=== PATIENT | female | born 1975 | race Caucasian/White ===

== ENCOUNTER 2016-03-08 11:09 | Emergency (ER) | payer BC ==
[2016-03-08 12:59] VITALS: BP 131/79
--- NOTE | 2016-03-08 13:38 | UC ---
Dental HPI - HPI Summary HPI Summary: Seen in about 4 weeks ago for white spots and soreness on bottom of tongue. Dx with thrush and put on nystatin oral susp. It went away after a few days until yesterday, when tongue started to feel a little sore. Today sees white patches again and tongue feels "scalded." also some white spots on inside of lower lip. Denies recent abx or steroids. No dx as diabetic. - History of Current Complaint Chief Complaint: UCGeneralIllness Stated Complaint: WHITE FILM IN MOUTH Time Seen by Provider: 03/08/16 12:53 Hx Obtained From: Patient Hx Last Menstrual Period: 12 days ago Onset/Duration: Gradual Onset, Lasting Hours Severity: Mild Aggravating: Nothing Alleviating: Nothing - Allergies/Home Medications Allergies/Adverse Reactions: Allergies Allergy/AdvReac Type Severity Reaction Status Date / Time Bupropion [From Wellbutrin] Allergy Rash Verified 02/10/16 07:21 Penicillins Allergy Giant Hives Verified 02/10/16 07:21 Onion AdvReac Intermediate Diarrhea Verified 02/10/16 07:21 CIGARETTES Allergy Severe DYSNPEA Uncoded 02/10/16 07:21 DOGS Allergy Severe Itching Uncoded 02/10/16 07:21 Home Medications: Home Medications Albuterol HFA INHALER* [Ventolin HFA Inhaler*] 03/08/16 [History] Montelukast Sodium TAB* [Singulair 10 MG TAB*] 1 tab PO 03/08/16 [History] PMH/Surg Hx/FS Hx/Imm Hx Endocrine History Of: Denies: Diabetes Cardiovascular History Of: Denies: Hypertension, Pacemaker/ICD Respiratory History Of: Reports: Asthma - PRN INHALER Psychological History Of: Reports: Anxiety - R/T UPCOMING SURGERY - Surgical History Surgical History: Yes Surgery Procedure, Year, and Place: Hysterrectomy; TEAR DUCT ENLARGED AN , NO ANESTHESIA. WISDOM TEETH EXTRACTION, OFFICE - Family History Known Family History: Positive: Diabetes - Type II - father Family History: no pmh of blood/bleeding disorders in family, - Social History Occupation: Employed Full-time Lives: With Family Alcohol Use: Occasionally Alcohol Amount: 3-5 week Substance Use Type: None Smoking Status (MU): Never Smoked Tobacco - Immunization History Most Recent Influenza Vaccination: 2013 Most Recent Tetanus Shot: 9 1/2 years ago Most Recent Pneumonia Vaccination: NONE Review of Systems Constitutional: Negative Skin: Negative Eyes: Negative ENT: Other - tongue sore and white areas Respiratory: Negative Cardiovascular: Negative Gastrointestinal: Negative Genitourinary: Negative Motor: Negative Neurovascular: Negative Musculoskeletal: Negative Neurological: Negative Psychological: Negative All Other Systems Reviewed And Are Negative: Yes Physical Exam Triage Information Reviewed: Yes Appearance: Well-Appearing, No Pain Distress, Well-Nourished Vital Signs: Initial Vital Signs Temp 98.9 F 03/08/16 12:54 Pulse 65 03/08/16 12:54 Resp 18 03/08/16 12:54 BP 131/79 03/08/16 12:54 Pulse Ox 100 03/08/16 12:54 Vital Signs Reviewed: Yes Eye Exam: Normal Eyes: Positive: Conjunctiva Clear ENT: Positive: Hearing grossly normal, TMs normal, Other: - irreg white patches on underside of tongue and inside of lower lip. No erythema.. Negative: Pharyngeal erythema, Nasal congestion, Tonsillar swelling, Tonsillar exudate Dental Exam: Normal Dental: Negative: Percussion Tenderness @, Gross Decay/Caries @, Dental Fracture @ Neck exam: Normal Neck: Positive: Supple, Nontender, No Lymphadenopathy Respiratory Exam: Normal Respiratory: Positive: Chest non-tender, Lungs clear, Normal breath sounds, No respiratory distress, No accessory muscle use Cardiovascular Exam: Normal Cardiovascular: Positive: RRR, No Murmur Musculoskeletal Exam: Normal Neurological Exam: Normal Psychological Exam: Normal Skin Exam: Normal Dental Complaint Course/Dx - Differential Dx/Diagnosis Provider Diagnoses: oral candidiasis Discharge - Discharge Plan Condition: Stable Disposition: HOME Prescriptions: Clotrimazole YAA* [Mycelex Yaa*] 10 mg MT SEE INSTRUCTIONS #50 yaa Patient Education Materials: Oral Candidiasis (ED) Referrals: Jennifer Chen MD [Primary Care Provider] - Additional Instructions: As we discussed, you do not have any risk factors for thrush, and your exam is not particularly suggestive for thrush, so we will treat it as thrush for now while you await your primary care follow-up visit.
== END 2016-03-08 13:47 | disposition home or self-care (01) ==
LOC: UCEAST 11:09
DX: B37.0 Candidal stomatitis (principal); Z88.8 Allergy status to other drugs, medicaments and biological substances
CPT/HCPCS: 87102; 99212; G0463

== ENCOUNTER 2018-10-05 14:42 | Emergency (ER) | payer BC ==
[2018-10-05 15:37] VITALS: BP 148/78
--- NOTE | 2018-10-05 15:44 | UC ---
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 Sx worse in the evening. No point pain perse. No wol h/a. No palpitations, cp. No sob, but does have asthma has used inhaler. No current GI sx, but did have some diarrhea at onset of sx. Currently ok. No melena / brbpr. No issues, s/p hyst apprx 3 yrs ago. No rash. Had lyme dz (pt report) x 2 in the past. Reports that doxycycline, while hard on GI, did help. - History of Current Complaint Chief Complaint: UCGeneralIllness Stated Complaint: FEVER/BODY ACHES/FATIGUE Time Seen by Provider: 10/05/18 15:37 Hx Obtained From: Patient Hx Last Menstrual Period: hysterectomy Pain Intensity: 3 - Allergy/Home Medications Allergies/Adverse Reactions: Allergies Allergy/AdvReac Type Severity Reaction Status Date / Time MS Bupropion Allergy Rash Verified 10/05/18 15:37 [From Wellbutrin] MS Penicillins [Penicillins] Allergy Giant Hives Verified 10/05/18 15:37 MS Onion [Onion] AdvReac Intermediate Diarrhea Verified 10/05/18 15:37 CIGARETTES Allergy Severe DYSNPEA Uncoded 10/05/18 15:37 DOGS Allergy Severe Itching Uncoded 10/05/18 15:37 Home Medications: Home Medications Cholecalciferol (Vitamin D3) [Vitamin D3] 1,000 unit PO DAILY 10/05/18 [History Confirmed 10/05/18] PMH/Surg Hx/FS Hx/Imm Hx Previously Healthy: Yes - see hpi - Surgical History Surgical History: Yes Surgery Procedure, Year, and Place: Hysterrectomy; TEAR DUCT ENLARGED AN INFANT, NO ANESTHESIA. WISDOM TEETH EXTRACTION, OFFICE - Family History Known Family History: Positive: Diabetes - Type II - father Family History: no pmh of blood/bleeding disorders in family, - Social History Alcohol Use: Occasionally Alcohol Amount: 3-5 week Substance Use Type: None Smoking Status (MU): Never Smoked Tobacco - Immunization History Most Recent Influenza Vaccination: 2013 Most Recent Tetanus Shot: 9 1/2 years ago Most Recent Pneumonia Vaccination: NONE Review of Systems All Other Systems Reviewed And Are Negative: Yes Constitutional: Positive: Other - see hpi Skin: Positive: Other - see hpi Eyes: Positive: Negative ENT: Positive: Other - allergies Respiratory: Positive: Other Cardiovascular: Positive: Other - see hpi Gastrointestinal: Positive: Other - see hpi Genitourinary: Positive: Other - see hpi Motor: Positive: Other - see hpi Neurovascular: Positive: Other - see hpi Musculoskeletal: Positive: Other: - see hpi Neurological: Positive: Other - see hpi Psychological: Positive: Negative Is Patient Immunocompromised?: No Physical Exam Triage Information Reviewed: Yes Appearance: Well-Nourished - sitting up, looks a little tired but nad Vital Signs: Initial Vital Signs Temp 98.2 F 10/05/18 15:32 Pulse 70 10/05/18 15:32 Resp 16 10/05/18 15:32 BP 148/78 10/05/18 15:32 Pulse Ox 100 10/05/18 15:32 Vital Signs Reviewed: Yes Eye Exam: Normal ENT: Positive: Pharynx normal, TM dull - dull au, d/w pt Neck exam: Normal Neck: Positive: Supple, Nontender, No Lymphadenopathy Respiratory Exam: Normal Respiratory: Positive: Chest non-tender, Lungs clear, Normal breath sounds, No respiratory distress, No accessory muscle use Cardiovascular Exam: Normal Cardiovascular: Positive: RRR, Pulses Normal, Brisk Capillary Refill Abdominal Exam: Normal Abdomen Description: Positive: Nontender Musculoskeletal: Positive: Strength Intact - gait steady, moves x 4 ext's Neurological Exam: Normal - grossly nonfocal Psychological Exam: Normal - conversing easily and appropriately Skin Exam: Normal - nondiaphoretic. no visible or reported rash. Course/Dx - Course Course Of Treatment: Reviewed coa / tx plan. [She is interested in rx for doxycycline. s/sx could be related to lyme - or tick borne illness - however, not completely specific. I suggest to hold off however, if possible until testing results back, and speaks with pcp. She is not sure when she will see pcp, will call for appt. Aware of doxycycline care. Ms. Shell was given the opportunity to ask several insightful questions, to which I answered to the best of my ability. - Diagnoses Provider Diagnosis: Fever, Myalgia Discharge - Sign-Out/Discharge Documenting (check all that apply): Patient Departure All imaging exams completed and their final reports reviewed: No Studies - Discharge Plan Condition: Stable Disposition: HOME Prescriptions: DOXYcycline CAP(*) [DOXYcycline 100MG CAP(*)] 100 mg PO BID #56 cap Patient Education Materials: Fever in Adults (ED), Musculoskeletal Pain (ED) Forms: *Work Release Referrals: Jennifer Chen MD [Primary Care Provider] - Additional Instructions: Call Dr. Chen - schedule a follow up for tomorrow (Tuesday) or early next week , if possible. Seek medical attention for worse or new symptoms. Hydrate. Avoid prolonged exposure to the sun while taking doxycycline. Check with your pharmacist about which medications to modify when taking doxycycline. Probiotic. Blood work and urine culture sent. - Billing Disposition and Condition Condition: STABLE Disposition: Home
[2018-10-05 19:01] LABS: ABS Basophils 0.1 10^3/ul (0-0.2); ABS Eosinophils 0.2 10^3/ul (0-0.6); ABS Lymphocytes 2.2 10^3/ul (1.0-4.8); ABS Monocytes 0.7 10^3/ul (0-0.8); ABS Neutrophils 9.4 10^3/ul (1.5-7.7); ABS Nucleated RBC 0.1 10^3/ul; Eosinophil % 1.6 %; Hematocrit 48 % (35-47); Lymphocyte % 17.5 %; Mean Corpuscular HGB Conc 34 g/dL (31-36); Mean Corpuscular Hemoglobin 29 pg (27-31); Mean Corpuscular Volume 87 fL (80-97); Mean Platelet Volume 9.7 fL (7.4-10.4); Nucleated Red Blood Cells % 0.4; Platelet Count 272 10^3/uL (150-450); Red Blood Count 5.45 10^6 /uL (3.70-4.87); Red Cell Distribution Width 13 % (10-15); White Blood Count 12.6 10^3/uL (3.5-10.8)
[2018-10-05 19:19] LABS: Albumin 4.7 g/dL (3.2-5.2); Albumin/Globulin Ratio 1.6 (1-3); BUN/Creatinine Ratio 18.1 (8-20); C Reactive Protein 3.07 mg/L (<8.01); EGFR African American 90.4 (>60); EGFR Non-African American 74.7 (>60); Globulin 2.9 g/dL (2-4); Potassium 4.4 mmol/L (3.5-5.0); Total Bilirubin 0.6 mg/dL (0.2-1.0); Total Protein 7.6 g/dL (6.4-8.9)
[2018-10-05 19:28] LABS: TSH (Thyroid Stimulating Horm) 1.22 mcIU/mL (0.34-5.60)
[2018-10-05 20:39] LABS: Erythrocyte Sed Rate 17 mm/Hr (0-19)
--- NOTE | 2018-10-06 13:16 | UC ---
- Progress Note Progress Note: Lyme dx titer pending, elevate WBC, nurse to call patient to ensure she has follow up with her physician/ no worsening. -Bertha Mina PAC Course/Dx - Diagnoses Provider Diagnoses: Fever, Myalgia Discharge - Sign-Out/Discharge Documenting (check all that apply): Patient Departure All imaging exams completed and their final reports reviewed: No Studies - Discharge Plan Condition: Stable Disposition: HOME Prescriptions: DOXYcycline CAP(*) [DOXYcycline 100MG CAP(*)] 100 mg PO BID #56 cap Patient Education Materials: Fever in Adults (ED), Musculoskeletal Pain (ED) Forms: *Work Release Referrals: Jennifer Chen MD [Primary Care Provider] - Additional Instructions: Call Dr. Chen - schedule a follow up for tomorrow (Tuesday) or early next week , if possible. Seek medical attention for worse or new symptoms. Hydrate. Avoid prolonged exposure to the sun while taking doxycycline. Check with your pharmacist about which medications to modify when taking doxycycline. Probiotic. Blood work and urine culture sent. - Billing Disposition and Condition Condition: STABLE Disposition: Home
== END 2018-10-05 16:48 | disposition home or self-care (01) ==
LOC: UCEAST 14:42
DX: R50.9 Fever, unspecified (principal); R53.83 Other fatigue; R19.7 Diarrhea, unspecified; Z88.0 Allergy status to penicillin
CPT/HCPCS: 36415; 80053; 84443; 85025; 85652; 86140; 87077; 87086; 87186; 87798; 99212; G0463

== ENCOUNTER 2019-01-09 19:36 | Emergency (ER) | payer BC ==
--- OUTSIDE RECORDS SUMMARY | 2019-01-09 19:41 | XMS REPORT | Continuity of Care Document ---
:1975 External Reference #:[id number] Author Name Damaris Qiu PA-C Address [address] [place] [address] Care Team Providers Name Role Phone Jennifer Pastrana DR. Care Team Information Customer Business Manager [phone] Self Care Team Information Customer Business Manager Unavailable Problems Active Problems Provider Date Lyme disease Damaris Qiu PA-C Onset: 12/01/2018 Note: Had twice by patient report Social History Type Date Description Comments Sex Unknown Tobacco Use Start: Unknown Never Smoked Cigarettes Tobacco Use Start: Unknown Never Smoked Cigars Tobacco Use Start: Unknown Never Smoked A Pipe Smokeless Tobacco Never Used Smokeless Tobacco ETOH Use Currently occasionally consumes alcohol Tobacco Use Start: Unknown Patient has never smoked Smoking Status Reviewed: 11/29/18 Patient has never smoked Allergies, Adverse Reactions, Alerts Active Allergies Reaction Severity Comments Date Bupropion 03/24/2016 Penicillins 03/24/2016 Onion 03/24/2016 Dogs 03/24/2016 Cigarette Smoke 03/24/2016 Medications Active Medications SIG Qnty Indications Ordering Provider Date Fluconazole take 2 pills on 15tabs B37.89 Manolo Contreras 12/01/2018 100mg the first day, MD [place] Tablets then one a day for 13 days. Albuterol HFA 2 puffs every [address] 90mcg/Act to 4 hours as Aerosol needed for wheezing Montelukast Sodium 1 by mouth every OsJennifer holliday DR. 10mg day Tablets Stress as directed Self B-Complex/C/Zinc Tablets Loratadine 1 a day Unknown 10mg Capsules Calcium 600/Magnesium 1 by mouth every Unknown 300/Vitamin D day 200-100-33.3mg-mg-Uni t Capsules Zinc 1 by mouth every Unknown 30mg Capsules day Vitamin C 1 by mouth twice Unknown 500mg a day Capsules Immunizations Description No Information Available Vital Signs Date Vital Result Comment 12/01/2018 11:16am Weight 183.00 lb Weight 83.009 kg Height 64 inches 5'4" Height in cm's 162.6 cm BMI (Body Mass Index) 31.4 kg/m2 04/20/2016 10:48am BP Systolic 127 mmHg BP Diastolic 79 mmHg Heart Rate 64 /min Weight 164.00 lb Weight 74.390 kg Height 64 inches 5'4" Height in cm's 162.6 cm BMI (Body Mass Index) 28.1 kg/m2 Results Description No Information Available Procedures Description No Information Available Medical Devices Description No Information Available Encounters Type Date Location Provider Dx Diagnosis Office Visit 12/01/2018 Amberly,Omayra Qiu, B37.0 Candidal stomatitis 11:00a 03/07/07 [facility] B37.89 Other sites of candidiasis Assessments Date Code Description Provider 12/01/2018 B37.0 Candidal stomatitis Damaris Qiu PA-C 12/01/2018 B37.89 Other sites of candidiasis Damaris Qiu PA-C Plan of Treatment 12/01/2018 - MCKENZIE TysonCB37.0 Candidal pvmexmyoshT00.89 Other sites of candidiasisNew Medication:Fluconazole 100 mg - take 2 pills on the first day, then one a day for 13 days. Functional Status Description No Information Available Mental Status Description No Information Available Referrals Description No Information Available
[2019-01-09 20:09] VITALS: BP 157/111
[2019-01-09] MEDS ORDERED: Lidocaine/Epineph/Tetraca SOL 4 ML BTL (LET solution) TOPICAL ONE (21:47)
[2019-01-09] MEDS ORDERED: Lidocaine/Epineph/Tetraca GEL* 3 ML GEL IN SYR TOPICAL ONE (21:49)
--- NOTE | 2019-01-09 22:56 | UC ---
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 STATES SHE STARTED TO HAVE ANOTHER FLARE YESTERDAY. COMES IN WITH EXTREMELY SWOLLEN, TENDER RIGHT LABIA MINORA. NO FEVER. - History Of Current Complaint Chief Complaint: UCGU Stated Complaint: SOFT TISSUE COMPLAINT Time Seen by Provider: 01/09/19 21:20 Hx Obtained From: Patient Hx Last Menstrual Period: hysterectomy Onset/Duration: Gradual Onset, Lasting Days, Still Present Timing: Constant Severity Initially: Moderate Severity Currently: Moderate Pain Intensity: 8 Pain Scale Used: 0-10 Numeric Aggravating Factor(s): Movement Alleviating Factor(s): Nothing Associated Signs And Symptoms: Positive: Genital Swelling. Negative: Fever, Back Pain, Vaginal Bleeding/Discharge, Nausea - Allergies/Home Medications Allergies/Adverse Reactions: Allergies Allergy/AdvReac Type Severity Reaction Status Date / Time bupropion [From Wellbutrin] Allergy Rash Verified 01/09/19 20:10 onion Allergy internal Verified 01/09/19 20:10 swelling Penicillins Allergy Hives Verified 01/09/19 20:10 CIGARETTES Allergy Severe DYSNPEA Uncoded 01/09/19 20:10 DOGS Allergy Severe Itching Uncoded 01/09/19 20:10 Home Medications: Home Medications Ascorbic Acid TAB* [Vitamin C TAB*] 500 mg PO DAILY 01/09/19 [History Confirmed 01/09/19] Ibuprofen TAB* [Advil TAB*] 400 mg PO PRN 01/09/19 [History] PMH/Surg Hx/FS Hx/Imm Hx Respiratory History: Asthma - Surgical History Surgical History: Yes Surgery Procedure, Year, and Place: Hysterectomy; TEAR DUCT ENLARGED AN INFANT, NO ANESTHESIA. WISDOM TEETH EXTRACTION, OFFICE. Bartholin cyst surgery - Family History Known Family History: Positive: Diabetes - Type II - father Family History: no pmh of blood/bleeding disorders in family, - Social History Alcohol Use: Occasionally Alcohol Amount: 3-5 week Substance Use Type: None Smoking Status (MU): Never Smoked Tobacco - Immunization History Most Recent Influenza Vaccination: 2013 Most Recent Tetanus Shot: 9 1/2 years ago Most Recent Pneumonia Vaccination: NONE Review of Systems All Other Systems Reviewed And Are Negative: Yes Constitutional: Positive: Negative Skin: Positive: Other - BARTHOLINS ABSCESS Respiratory: Positive: Negative Cardiovascular: Positive: Negative Gastrointestinal: Positive: Negative Genitourinary: Positive: Ulceration/Lesion. Negative: Dysuria, Hematuria, Frequency Physical Exam Triage Information Reviewed: Yes Appearance: Well-Appearing, No Pain Distress, Well-Nourished Vital Signs: Initial Vital Signs Temp 98.5 F 01/09/19 20:04 Pulse 93 01/09/19 20:04 Resp 18 01/09/19 20:04 BP 157/111 01/09/19 20:04 Pulse Ox 100 01/09/19 20:04 Vital Signs Reviewed: Yes Eyes: Positive: Conjunctiva Clear ENT: Positive: Hearing grossly normal Neck: Positive: Supple Respiratory: Positive: No respiratory distress, No accessory muscle use Cardiovascular: Positive: Pulses Normal Abdomen Description: Positive: Soft Pelvic Exam: Positive: Other - LARGE RIGHT SIDED BARTHOLINS ABSCESS WITH SURROUNDING SOFT TISSE EDEMA. TENDER Musculoskeletal: Positive: No Edema Neurological: Positive: Alert Psychological: Positive: Age Appropriate Behavior Skin: Negative: Rashes Procedures - Incision and Drainage Right Site: RIGHT LABIA MINORA Anesthesia: Topical - LET Instrument(s): Scalpel - 11 BLADE Packing: Other - NONE Complaint Female Dx - Course Course Of Treatment: PATIENT WITH A HISTORY OF RECURRENT BARTHOLIN'S CYST/ABSCESSES OVER THE PAST 25 YEARS. STATES THE MOST RECENT ONE WAS ABOUT 3-4 YEARS AGO. SHE DENIES ANY FEVER. TOPICAL LET GEL APPLIED FOR LOCAL ANESTHESIA. 11 BLADE USED TO INCISE MEDIAL RIGHT LABIA MINORA. COPIOUS AMOUNTS OF BLOOD AND PUS WERE EXPRESSED. PATIENT DECLINES ANTIBIOTIC TREATMENT AT THIS TIME WHICH I THINK IS REASONABLE GIVEN THE LACK OF EVIDENCE THAT ANTIBIOTICS ARE HELPFUL IN THIS SITUATION. SWAB SENT FOR CULTURE JUST IN CASE SHE DOES NOT IMPROVE WITH HOT SOAKS AND DRAINAGE THIS MAY HELP WITH ANTIBIOTIC SELECTION. PATIENT WILL CALL [facility] FIRST THING TOMORROW MORNING TO SCHEDULE FOLLOW-UP APPOINTMENT. I STRONGLY ENCOURAGED THAT SHE ADDRESS THE POSSIBILITY OF EXCISION /MARSUPIALIZATION. - Differential Dx/Diagnosis Provider Diagnosis: Cyst of right Bartholin's gland Discharge ED - Sign-Out/Discharge Documenting (check all that apply): Patient Departure All imaging exams completed and their final reports reviewed: No Studies - Discharge Plan Condition: Stable Disposition: HOME Patient Education Materials: Bartholin Cyst (ED) Forms: *Work Release Referrals: [facility] [Provider Group] - 2 Days Jennifer Chen MD [Primary Care Provider] - If Needed Additional Instructions: YOUR BARTHOLIN'S ABSCESS WAS INCISED AND DRAINED TODAY WITH COPIOUS PURULENT/ BLOODY DRAINAGE. CULTURE HAS BEEN SENT. HOT SOAKS AT LEAST 4 TIMES DAILY. OTC MEDICATIONS NEEDED FOR DISCOMFORT. CALL [facility] TOMORROW MORNING TO SCHEDULE FOLLOW-UP APPOINTMENT FOR THIS WEEK. I STRONGLY RECOMMEND YOU HAVE THE BARTHOLIN'S GLAND EVALUATED FOR EXCISION/MARSUPIALIZATION. - Billing Disposition and Condition Condition: STABLE Disposition: Home
--- NOTE | 2019-01-13 14:51 | UC ---
- Progress Note Progress Note: Wound culture not MRSA. Showed normal laurie and Staph Lugdenensis. Per Dr. Garcia 's note pt had refused antibiotics. Nurses will call and chesk on patient to see if she is improving and if she followed up with [facility] for further care. Course/Dx - Diagnoses Provider Diagnoses: Cyst of right Bartholin's gland Discharge ED - Sign-Out/Discharge Documenting (check all that apply): Post-Discharge Follow Up All imaging exams completed and their final reports reviewed: No Studies - Discharge Plan Condition: Stable Disposition: HOME Patient Education Materials: Bartholin Cyst (ED) Forms: *Work Release Referrals: [facility] [Provider Group] - 2 Days Jennifer Chen MD [Primary Care Provider] - If Needed Additional Instructions: YOUR BARTHOLIN'S ABSCESS WAS INCISED AND DRAINED TODAY WITH COPIOUS PURULENT/ BLOODY DRAINAGE. CULTURE HAS BEEN SENT. HOT SOAKS AT LEAST 4 TIMES DAILY. OTC MEDICATIONS NEEDED FOR DISCOMFORT. CALL [facility] FIRST [facility] TOMORROW MORNING TO SCHEDULE FOLLOW-UP APPOINTMENT FOR THIS WEEK. I STRONGLY RECOMMEND YOU HAVE THE BARTHOLIN'S GLAND EVALUATED FOR EXCISION/MARSUPIALIZATION. - Billing Disposition and Condition Condition: STABLE Disposition: Home
== END 2019-01-09 22:50 | disposition home or self-care (01) ==
LOC: UCEAST 19:36
DX: N75.0 Cyst of Bartholin's gland (principal); J45.909 Unspecified asthma, uncomplicated; Z88.8 Allergy status to other drugs, medicaments and biological substances; Z91.018 Allergy to other foods; Z88.0 Allergy status to penicillin; Z91.09 Other allergy status, other than to drugs and biological substances
CPT/HCPCS: 56405; 87070; 87077; 87186; 87205; 87640; 87641; 99212; A9270-GY; G0463

== ENCOUNTER 2019-04-09 13:34 | Emergency (ER) | payer BC ==
--- OUTSIDE RECORDS SUMMARY | 2019-04-09 13:41 | XMS REPORT | Continuity of Care Document ---
:1975 External Reference #:[id number] Author Name Mikala Herr MD (transmitted by agent of provider Latrice John ) Address [address] [place] [address] Care Team Providers Name Role Phone Jennifer Green Care Team Information Lighting Engineering Technician [phone] Problems Description No Active Problems Social History Type Date Description Comments Sex Unknown Tobacco Use Start: Unknown Patient has never smoked Smoking Status Reviewed: 02/22/19 Patient has never smoked Allergies, Adverse Reactions, Alerts Description No Known Drug Allergies Medications Active Medications SIG Qnty Indications Ordering Provider Date Sulfamethoxazole/Trime take 1 tab by 14tabs N75.1 Mikala Herr, 2018 thoprim DS mouth twice a MD 800-160mg day x7 days Tablets Calcium Unknown Vitamin C Unknown B Complex 1 po qd Unknown Capsules Probiotic 1 po qd Unknown Capsules Immunizations Description No Information Available Vital Signs Date Vital Result Comment 02/22/2019 10:14am Height 66 inches 5'6" 1 Parity 0 01/15/2019 1:29pm BP Systolic 138 mmHg BP Diastolic 88 mmHg Height 66 inches 5'6" Weight 183.00 lb BMI (Body Mass Index) 29.5 kg/m2 Last Menstrual Period 0579220 1 Parity 0 Results Description No Information Available Procedures Date Code Description Status 01/15/2019 45462 I & D Abscess Bartholin's Gland Completed Medical Devices Description No Information Available Encounters Description No Information Available Assessments Date Code Description Provider 01/15/2019 N75.1 Abscess of Bartholin's gland Mikala Herr MD Plan of Treatment No Information Available Functional Status Description No Information Available Mental Status Description No Information Available Referrals Description No Information Available
--- OUTSIDE RECORDS SUMMARY | 2019-04-09 13:41 | XMS REPORT | Continuity of Care Document ---
:1975 Author Organization [facility] Address [address] [place] [address] Phone Care Team Providers Name Role Phone Aubrie SVP [employer], [place] Unavailable Unavailable Allergies, Adverse Reactions, Alerts Substance Reaction Status No Known Allergies Active Medications Medication Instructions Dosage Effective Dates Status Comments (start - stop) MONTELUKAST SODIUM Not Available - Active (unknown strength) LORATADINE (unknown Not Available - Active strength) Problems Condition Effective Dates (start - Clinical Status Comments stop) Human immunodeficiency virus [HIV] - counseling Encntr screen for infections w sexl mode of transmiss Human immunodeficiency virus [HIV] - counseling Encounter for screening for human - immunodeficiency virus Encntr screen for infections w sexl mode of transmiss Procedures Procedure Date PREVENTIVE COUNSELING, Under 8 Minutes Hepatitis C Antibody (Anti-HCV) HEPATITIS B SURFACE ANTIGEN ROUTINE VENIPUNCTURE OFFICE/OUTPATIENT VISIT, EST OTHER Medical Services Contraceptive Manager [facility]. Other Manager [facility]. STI Results Test Name Date and Time Measure Units Reference Range Abnormal Flag Status Comments No information Advance Directives Directive Yes / No Effective Date File Name No information Encounters Encounter Practice Location Reason(s) Diagnoses Date Provider Providers Description For Visit Copied on Encounter OFFICE/OUTPA [facility] Human Aubrie Referring TIENT VISIT, [facility] [place] Testing No immunodeficiency 8-201 Fiorella. [address] Provider: MITRA Southern Symptoms virus [HIV] [address], Fiorella Finger (F) (chief counselingEncntr [place], [place], Tiffanie Sal, [address] complaint) [place] [address]. s, [address] infections w tel:[phone], [address], [place], [place] [address] [place], [place], [place], [address]. [id number], tel:[phone] tel:[phone] [facility] Anuel-1 Jackeline Referring [facility] [place] immunodeficiency 0-201 Carie. [address] Provider: Southern virus [HIV] [address], Carie Finger counselingEncoun [place], [place], Doron Luke, [address] [place] [address], [place]. [address] screening for tel:[phone], [place], human [address] [place], [place], [place], [address]. [id number], virusEncntr tel:[phone] [place] screen for [id number] tel:[phone] infections w [id number] sexl mode of transmiss Family History Family Member Diagnosis Age At Onset No information Immunizations Vaccine Date Status Comments No information Payers Payer name Insurance type Covered libertarian ID Authorization(s) [facility] [id number] Social History Type Description Quantity Date Captured Comments Alcohol Use Details Unknown Caffeine Use Details Unknown Tobacco Use Status Current non-smoker Smoking Status Never smoker Non-Smoking Tobacco : No Details Available : No Details Available 2018 Use Details Sex Female Vital Signs Date / Height Weight BMI Pulse Blood Temperature Respiratory Body Head BMI Pulse Inhaled Time: Rate Pressure Rate Surface Circumference percentile Ox Ox Area No information Chief Complaint And Reason For Visit Most recent encounter only, dated '02/21/2019 17:10'. STI Testing No Symptoms (F) (chief complaint) Reason For Referral Reason For Referral No information Plan Of Treatment Date Type Action Status No information History Of Present Illness Encounter Date Complaint History Of Present Illness No information Functional Status Date Functional Assessment No information Medications Administered Medication Instructions Dosage Effective Dates (start - stop) Status Comments No information Instructions Date Instruction Additional Information No information Assessments Type Assessment Date assessment Human immunodeficiency virus [HIV] counseling assessment Encntr screen for infections w sexl mode of transmiss Goals Health Concern Goal Type Priority Status Date No information Medical Equipment Description Device Bruin Device Identifier Effective Dates (start - stop ) Status No information Mental Status Date Cognitive Assessment Normal Orientation Health Concerns Observation Date No information Concern Status Date No information
--- NOTE | 2019-04-09 14:20 | UC ---
Headache HPI - HPI Summary HPI Summary: 43 yo female did not feel well on arising this AM slight disequilibirium nausea low energy debated if she would go into work This morning decided to go home and work there About one PM developed shimmering in her right eye temporal visual field She called her He states she sounded a little freaked out but not speaking jibberish or slurring words He arrived home The visual symptoms lasted about 10 minutes 30 minutes later she developed a right sided headache which has since become holocranial It is mild 2/10 no photo/phono phobia no dizziness or vertigo no cp or sob no visual complaints she states that for the past few months she has be wondering if she is developing migraines has had headache associated with photophobia and phonophobia lays down and covers eyes and headache resolves - History Of Current Complaint Chief Complaint: UCEye Stated Complaint: DIZZY, VISION ISSUES Time Seen by Provider: 04/09/19 13:54 Hx Obtained From: Patient Hx Last Menstrual Period: hysterectomy Onset/Duration: Gradual Onset, Lasting Hours - about an hour Onset Of Symptoms: Gradual Initially Headache Was: Mild Currently Pain Is: Mild Pain Intensity: 2 Timing: Constant Character: Dull Location of Headache: Diffuse Aggravating Factor(s): Nothing Allevating Factor(s): Nothing Associated Signs And Symptoms: Positive: Visual Changes - resolved. Negative: Dizziness, Seizure, Nausea, Vomiting, Sinus Pressure, Fever, Neck Pain, Neck Stiffness, Decreased LOC - Allergies/Home Medications Allergies/Adverse Reactions: Allergies Allergy/AdvReac Type Severity Reaction Status Date / Time bupropion [From Wellbutrin] Allergy Rash Verified 04/09/19 13:47 onion Allergy internal Verified 04/09/19 13:47 swelling Penicillins Allergy Hives Verified 04/09/19 13:47 CIGARETTES Allergy Severe DYSNPEA Uncoded 04/09/19 13:47 DOGS Allergy Severe Itching Uncoded 04/09/19 13:47 Home Medications: Home Medications Loratadine [Claritin 10 MG CAP] 1 tab PO DAILY 04/09/19 [History Confirmed 04/09] PMH/Surg Hx/FS Hx/Imm Hx Previously Healthy: Yes - has been anemic in the past - Surgical History Surgical History: Yes Surgery Procedure, Year, and Place: Hysterectomy; TEAR DUCT ENLARGED AN INFANT, NO ANESTHESIA. WISDOM TEETH EXTRACTION, OFFICE. Bartholin cyst surgery - Family History Known Family History: Positive: Cardiac Disease - one of her grandparents, Diabetes - Type II - father Family History: no pmh of blood/bleeding disorders in family, - Social History Lives: With Family Alcohol Use: Occasionally Alcohol Amount: 3-5 week Substance Use Type: None Smoking Status (MU): Never Smoked Tobacco - Immunization History Most Recent Influenza Vaccination: 2013 Most Recent Tetanus Shot: 9 1/2 years ago Most Recent Pneumonia Vaccination: NONE Review of Systems All Other Systems Reviewed And Are Negative: Yes Constitutional: Positive: Fatigue - low energy Skin: Positive: Negative Eyes: Positive: Negative - earlier shimmerring right temporal field ENT: Positive: Negative Respiratory: Positive: Negative Cardiovascular: Positive: Negative Gastrointestinal: Positive: Negative Genitourinary: Positive: Negative Motor: Positive: Negative Neurovascular: Positive: Negative Musculoskeletal: Positive: Negative Neurological: Positive: Headache Psychological: Positive: Negative Physical Exam Triage Information Reviewed: Yes Appearance: Well-Appearing, No Pain Distress, Well-Nourished Vital Signs: Initial Vital Signs Temp 97.7 F 04/09/19 13:40 Pulse 74 04/09/19 13:40 Resp 18 04/09/19 13:40 BP 148/94 04/09/19 13:40 Pulse Ox 20 04/09/19 13:40 Vital Signs Reviewed: Yes Eyes: Positive: Conjunctiva Clear, Other: - EOMI/PERRL, fundi benign, visual her normal/full ENT: Positive: Hearing grossly normal, Pharynx normal, TMs normal. Negative: Nasal congestion, Nasal drainage, Tonsillar swelling, Tonsillar exudate, Trismus , Muffled voice, Hoarse voice, Dental tenderness, Sinus tenderness Dental Exam: Normal Neck: Positive: Supple, Nontender, No Lymphadenopathy, Other: - NO BRUITS Respiratory: Positive: Lungs clear, Normal breath sounds, No respiratory distress, No accessory muscle use Cardiovascular: Positive: RRR, No Murmur. Negative: Tachycardia Abdomen Description: Positive: Nontender, No Organomegaly. Negative: CVA Tenderness (R), CVA Tenderness (L) Bowel Sounds: Positive: Present Neurological: Positive: Alert, Muscle Tone Normal, Other: - CN 2-12 intact/ strenght 5/5, no facial droop or pronator drift, dtrs brisk and symmetrical, toes down going/gait normal. Psychological Exam: Normal Skin Exam: Normal Diagnostics - Radiology No standard instances Radiology Interpretation Completed By: Radiologist Summary of Radiographic Findings: 1. NO EVIDENCE FOR ACUTE INTRACRANIAL ABNORMALITY. 2. MILD BILATERAL ANTERIOR VOLUME LOSS VERSUS SMALL SUBDURAL HYGROMAS - EKG Cardiac Rate: NL Cardiac Rhythm: Sinus: Normal Ectopy: None ST Segment: Normal Summary of EKG Findings: 1st degree AVB Re-Evaluation - Re-Evaluation First Eval Re-Evaluation Time: 15:06 Comment: Headache about 06/14 now. no new symptoms Headache Course/Dx - Differential Dx/Diagnosis Provider Diagnosis: Ocular migraine Discharge ED - Sign-Out/Discharge Documenting (check all that apply): Patient Departure All imaging exams completed and their final reports reviewed: Yes - Discharge Plan Condition: Stable Disposition: HOME Patient Education Materials: Migraine Headache (ED) Additional Instructions: rest fluids tylenol or aleve recheck for new or worsening symptoms recheck tomorrow if you still have a headache - Billing Disposition and Condition Condition: STABLE Disposition: Home
[2019-04-09 15:27] VITALS: BP 149/91
[2019-04-09 20:00] LABS: ABS Basophils 0.1 10^3/ul (0-0.2); ABS Eosinophils 0.2 10^3/ul (0-0.6); ABS Lymphocytes 1.7 10^3/ul (1.0-4.8); ABS Monocytes 0.7 10^3/ul (0-0.8); ABS Neutrophils 6.4 10^3/ul (1.5-7.7); Eosinophil % 2.1 %; Hematocrit 45 % (35-47); Lymphocyte % 18.5 %; Mean Corpuscular HGB Conc 34 g/dL (31-36); Mean Corpuscular Hemoglobin 29 pg (27-31); Mean Corpuscular Volume 87 fL (80-97); Mean Platelet Volume 9.7 fL (7.4-10.4); Platelet Count 263 10^3/uL (150-450); Red Blood Count 5.16 10^6 /uL (3.70-4.87); Red Cell Distribution Width 13 % (10-15); White Blood Count 8.9 10^3/uL (3.5-10.8)
[2019-04-09 20:02] LABS: Albumin 4.2 g/dL (3.2-5.2); Calcium 9.5 mg/dL (8.6-10.3); Potassium 4.2 mmol/L (3.5-5.0); Total Bilirubin 0.5 mg/dL (0.2-1.0)
[2019-04-09 20:08] LABS: Albumin/Globulin Ratio 1.7 (1-3); BUN/Creatinine Ratio 12.2 (8-20); EGFR African American 74.6 (>60); EGFR Non-African American 61.7 (>60); Globulin 2.5 g/dL (2-4); Total Protein 6.7 g/dL (6.4-8.9)
== END 2019-04-09 15:26 | disposition home or self-care (01) ==
LOC: UCEAST 13:34
DX: G43.B0 Ophthalmoplegic migraine, not intractable (principal); Z88.0 Allergy status to penicillin; Z91.018 Allergy to other foods; Z88.8 Allergy status to other drugs, medicaments and biological substances; Z91.09 Other allergy status, other than to drugs and biological substances
CPT/HCPCS: 36415; 70450; 80053; 85025; 93005; 99211; G0463